=== PATIENT | female | born 1955 | race Caucasian/White ===

== ENCOUNTER 2017-09-10 16:10 | Inpatient (IN) | payer MEDICAID ==
[~2017-09-10] VITALS: Ht 157.5 cm; Wt 95.8 kg
[2017-09-11] MEDS ORDERED: TYLENOL 325MG325 MG PO (11:02)
[2017-09-11] MEDS ORDERED: IPRATROPIUM BROM3 M1 IH (11:04)
[2017-09-11] MEDS ORDERED: VITAMINC1000TA PO (11:19)
[2017-09-11] MEDS ORDERED: ASPI325T6 PO (11:20)
[2017-09-11] MEDS ORDERED: CATAPRES 0.1MG0.1 MG PO (11:23)
[2017-09-11] MEDS ORDERED: PEPCID 20MG TAB20 MG PO (11:24)
[2017-09-11] MEDS ORDERED: FERROUS SU325 MG/TAB PO (11:25)
[2017-09-11] MEDS ORDERED: HCTZ 25MG TAB25 MG PO (11:26)
[2017-09-11] MEDS ORDERED: LEVEMIR FLEX100 U/ML SQ (11:27)
[2017-09-11] MEDS ORDERED: LEVOXYL0.025 MG PO (11:28)
[2017-09-11] MEDS ORDERED: PRINIVIL40 MG PO (11:29)
[2017-09-11] MEDS ORDERED: GOOD NEIGH1200 MG/15 PO (11:32)
[2017-09-11] MEDS ORDERED: ULTRAM 50MG TAB50 MG PO (11:37)
[2017-09-11] MEDS ORDERED: VITAMIN B COMPL1 SGL PO (11:40)
[2017-09-11 15:37] VITALS: BP 134/64; PULSE 66; TEMP 98.3
[2017-09-12 05:16] VITALS: BP 154/73; PULSE 81; TEMP 98
[2017-09-12 15:57] VITALS: BP 181/81; PULSE 105; TEMP 98.9
[2017-09-13 06:38] VITALS: BP 156/67; PULSE 68; TEMP 97.7
[2017-09-13 16:22] VITALS: BP 134/66; PULSE 84; TEMP 99.2
[2017-09-14 06:21] VITALS: BP 161/72; PULSE 84; TEMP 98.4
[2017-09-14 16:38] VITALS: BP 184/85; PULSE 97; TEMP 98.4
[2017-09-14 16:58] VITALS: BP 168/86
[2017-09-15 03:57] VITALS: BP 153/77; PULSE 88; TEMP 98
[2017-09-15 16:32] VITALS: BP 157/81; PULSE 98; TEMP 99.6
[2017-09-16 04:40] VITALS: BP 158/86; BP 176/82; PULSE 91; TEMP 98.5
[2017-09-16] MEDS ORDERED: PROAIR HFA0.09 MG/AC IH (07:59)
[2017-09-16] MEDS ORDERED: FERROUS SU325 MG/TAB PO (08:00)
[2017-09-16] MEDS ORDERED: ZESTRIL40 MG PO (08:03)
[2017-09-16] MEDS ORDERED: NORVASC 5MG5 MG/TAB PO (08:04)
[2017-09-16] MEDS ORDERED: ULTRAM 50MG TAB50 MG PO (08:04)
== END 2017-09-16 11:20 | disposition home health service (06) | DRG 560 ==
DX: Z47.1 Aftercare following joint replacement surgery (principal); M87.251 Osteonecrosis due to previous trauma, right femur; S72.051D Unspecified fracture of head of right femur, subsequent encounter for closed fracture with routine healing; E66.01 Morbid (severe) obesity due to excess calories; Z68.39 Body mass index [BMI] 39.0-39.9, adult; I10 Essential (primary) hypertension; Z85.110 Personal history of malignant carcinoid tumor of bronchus and lung; J44.9 Chronic obstructive pulmonary disease, unspecified; Z87.891 Personal history of nicotine dependence; E11.9 Type 2 diabetes mellitus without complications; Z79.4 Long term (current) use of insulin
CPT/HCPCS: 99222-AI; 99232-AI; 99239; J1815